=== PATIENT | female | born 1985 | race American Indian/Alaskan Native ===

== ENCOUNTER 2016-07-04 11:26 | Outpatient (CLI) | payer BC ==
--- NOTE | 2016-07-04 12:52 | Fluoroscopy Report ---
FLUORO GUIDED HSG INDICATION: Infertility. History of left ovarian surgery. COMPARISON: None similar. FINDINGS: Hysterosalpingogram performed with cervix cannulated using standard sterile precautions. Preliminary radiograph demonstrates a small surgical clip overlying the sacrum on the left. Few small pelvic phleboliths. Hand-injection of 16 cc of Omnipaque-300 under fluoroscopy demonstrates likely anteflexed uterus, appearing end-on. Normal uterine cavity/contour, to the extent assessed. Prompt visualization of normal caliber bilateral fallopian tubes with free intraperitoneal spill noted on the left, eventually crossing over to the right, limiting further evaluation. CONCLUSION: 1. Right fallopian tube visualized, though suspected occluded distally without evidence of free intraperitoneal spill. 2. Normal imaged uterus and patent left fallopian tube. 3. Other findings, including a small pelvic surgical clip. Thank you for the opportunity to participate in this patient's care.
== END 2016-07-04 11:27 | disposition home or self-care (01) ==
LOC: FLUORO 11:26
PROVIDERS: ATTEND Obstetrics & Gynecology
DX: N97.9 Female infertility, unspecified (principal); I87.8 Other specified disorders of veins; Z98.890 Other specified postprocedural states
CPT/HCPCS: 58340; 74740; Q9967